=== PATIENT | female | born 1985 | race Caucasian/White ===

== ENCOUNTER 2016-12-12 14:40 | Emergency (ER) | payer OTHER ==
[2016-12-12 14:50] VITALS: BMI 24.3
[2016-12-12] MEDS ORDERED: NS 1000 ML 1,000 ML IV ONE (14:59)
--- NOTE | 2016-12-12 15:00 | DR.GENAD ---
HPI - PCP Primary Care Physician: MATT - Complaint/Symptoms Chief Complaint Doctors Comments: Patient states that she saw her primary care physicain Dr Ya on yesterday for left side lymph node swelling. An u/s and labs sent to reference facility results will be available next week. She admits to having a low grade temp for one month. She has been taking chemo pills for severe joint pain and rheumatoid arthritis. She has fatique and has been tested for RA and fibromyalgia on yesterday. Yesterday she was started on prednisone 5mg daily the help with the joint pain, zanaflrx and gabapentin 300mg increased to two in the AM and three HS for joint pain. She is taking ativan 1mg; two daily for anxiety. Patient states that she does not feel good and has had fatique for one month. She had cancer in 2013 and is followed by her oncologist in [place]. She has been antibiotics by Dr Jacinto for "flu" and strep. Chief Complaint:: PT C/O SIMONA, HEART RACING, FEVER, SWOLLEN LYMPH NODES UNDER ARMS. - Source History Provided: Patient - Mode of Arrival Mode of Arrival: Ambulatory - Timing Onset of Chief Complaint: 12/12/16 PMH - PMH Past Medical History: Yes Past Medical History Comment: BREAST CA Past Surgical History: Yes Surgical History: Appendectomy, , RISK ANALYST Surgery, Hysterectomy, Mastectomy - Family History History of Family Medical Conditions: No - Social History Does any household member use tobacco: No Alcohol Use: None Do you use any recreational Drugs:: No Lives With: Family Lives Where: Home - infectious screening In the last 2 months have you had wt loss of >10#?: NO Have you had fever, night sweats or hemotysis?: No Have you traveled outside the country in the last 6 months?: No Isolation: Standard ROS - Review of Systems Constitutional: No Symptoms Reported Eyes: No Symptoms Reported ENTM: No Symptoms Reported Respiratoy: No Symptoms Reported Cardiovascular: No Symptoms Reported Gastrointestinal/Abdominal: No Symptoms Reported Genitourinary: No Symptoms Reported Neurological: No Symptoms Reported Musculoskeletal: Neck Integumentary: No Symptoms Reported Hematologic/Lymphatic: No Symptoms Reported Endocrine: No Symptoms Reported Psychiatric: No Symptoms Reported All Other Systems: Reviewed and Negative PE - Vital Signs Vitals: Temperature 99.1 F Pulse Rate [Left Brachial] 111 Pulse Rate 153 Respiratory Rate 22 Blood Pressure [Left Arm] 125/67 Blood Pressure 120/106 O2 Sat by Pulse Oximetry 94 - General Limitations: No Limitations General Appearance: Alert, In No Apparent Distress, Anxious - Head Head Exam: Normal Inspection, Atraumatic - Eyes Eye exam: Normal Appearance, PERRL, EOMI - ENT ENT Exam: Normal Exam External Ear Exam: Normal External Inspection TM/Canal Exam: Bilateral Normal Nose Exam: Other (congested) Mouth Exam: Normal Inspection Throat Exam: Normal Inspection - Neck Neck Exam: Normal Inspection - Chest Chest Inspection: Normal Inspection - Respiratory Respiratory Exam: Normal Lung Sounds Bilat Respiratory Exam: Bilateral Clear to Auscultation - Cardiovascular Cardiovascular Exam: Regular Rate, Normal Rhythm - Abdominal Exam Abdominal Exam: Normal Inspection, Tenderness Abdominal Tenderness: Epigastrium - Extremities Extremities Exam: Normal Inspection - Back Back Exam: Normal Inspection, Full ROM - Neurologic Neurological Exam: Alert, Oriented X3, CN II-XII Intact - Psychiatric Psychiatric Exam: Normal Affect, Agitated, Anxious Course - Reevaluation 1st: Improved ROR - Labs Reviewed Result Diagrams: 12/12/16 15:15 12/12/16 15:15 Laboratory: WBC 6.6 X10^3/uL (3.6-10.0) 12/12/16 15:15 RBC 4.82 X10^6/uL (3.5-5.4) 12/12/16 15:15 Hgb 13.7 g/dL (12.0-16.0) 12/12/16 15:15 Hct 40.4 % (36.0-47.0) 12/12/16 15:15 MCV 83.7 fL (80.0-100.0) 12/12/16 15:15 MCH 28.4 pg (27.0-34.0) 12/12/16 15:15 MCHC 33.9 g/dL (33.0-35.0) 12/12/16 15:15 RDW 12.6 % (11.6-16.5) 12/12/16 15:15 Plt Count 196 X10^3/uL (150.0-450.0) 12/12/16 15:15 MPV 7.6 fL (7.4-11.0) 12/12/16 15:15 Neut % 81.2 % (42.0-75.0) H 12/12/16 15:15 Lymph % 8.1 % (21.0-51.0) L 12/12/16 15:15 [place] % 9.0 % (0.0-13.0) 12/12/16 15:15 Eos % 0.8 % (0.9-2.9) L 12/12/16 15:15 Baso % 0.9 % (0.2-1.0) 12/12/16 15:15 Neut # 5.4 x10^3/uL (2.2-4.8) H 12/12/16 15:15 Lymph # 0.5 X10^3/uL (1.3-2.9) L 12/12/16 15:15 [place] # 0.6 x10^3/uL (0.3-0.8) 12/12/16 15:15 Eos # 0.1 x10^3/uL (0.0-0.2) 12/12/16 15:15 Baso # 0.1 X10^3/uL (0.0-0.1) 12/12/16 15:15 Absolute Nucleated RBC 0.0 /100WBC 12/12/16 15:15 INR Target Range - 12/12/16 15:15 INR 0.92 (0.8-1.3) 12/12/16 15:15 PTT 28.4 SECONDS (22.9-36.5) 12/12/16 15:15 PTT Comment - 12/12/16 15:15 Sodium 141 mmol/L (136-145) 12/12/16 15:15 Corrected Sodium 141 mmol/L (136-145) 12/12/16 15:15 Potassium 3.6 mmol/L (3.5-5.1) 12/12/16 15:15 Chloride 105 mmol/L (98-107) 12/12/16 15:15 Carbon Dioxide 24.8 mmol/L (21-32) 12/12/16 15:15 BUN 11 mg/dL (7-18) 12/12/16 15:15 Creatinine 0.79 mg/dL (0.55-1.02) 12/12/16 15:15 Est GFR (MDRD) Af Amer > 60 (>60) 12/12/16 15:15 Est GFR (MDRD) Non-Af > 60 (>60) 12/12/16 15:15 Glucose 113 mg/dL (65-99) H 12/12/16 15:15 Calcium 8.6 mg/dL (8.5-10.1) 12/12/16 15:15 Corrected Calcium TNP 12/12/16 15:15 Phosphorus 2.5 mg/dL (2.6-4.7) L 12/12/16 15:15 Magnesium 1.8 mg/dL (1.7-2.9) 12/12/16 15:15 Total Bilirubin 0.20 mg/dL (0.2-1.0) 12/12/16 15:15 AST 17 Units/L (15-37) 12/12/16 15:15 ALT 24 Units/L (12-78) 12/12/16 15:15 Alkaline Phosphatase 107 Units/L (46-116) 12/12/16 15:15 Creatine Kinase 43 Units/L (26-192) 12/12/16 15:15 CK-MB (CK-2) < 1.0 ng/mL (0-4.0) 12/12/16 15:15 CK/CKMB % Calc 2.3 % (<4) 12/12/16 15:15 Troponin I < 0.02 ng/mL (0-1.5) 12/12/16 15:15 Total Protein 7.4 g/dL (6.4-8.2) 12/12/16 15:15 Albumin 3.8 g/dL (3.4-5.0) 12/12/16 15:15 Globulin 3.6 g/dL (2.5-4.5) 12/12/16 15:15 Albumin/Globulin Ratio 1.1 Ratio (1.1-2.1) 12/12/16 15:15 Specimen Type Clean catch urine 12/12/16 18:36 Urine Color Yellow (YELLOW) 12/12/16 18:36 Urine Appearance Hazy (CLEAR) 12/12/16 18:36 Urine pH 6.5 (5.0 - 8.0) 12/12/16 18:36 Ur Specific [place] 1.005 (1.000-1.030) 12/12/16 18:36 Urine Protein Negative (NEGATIVE) 12/12/16 18:36 Urine Glucose (UA) Negative (NEGATIVE) 12/12/16 18:36 Urine Ketones Negative (NEGATIVE) 12/12/16 18:36 Urine Occult Blood 2+ (NEGATIVE) 12/12/16 18:36 Urine Nitrite Negative (NEGATIVE) 12/12/16 18:36 Urine Bilirubin Negative (NEGATIVE) 12/12/16 18:36 Urine Urobilinogen Normal (NORMAL) 12/12/16 18:36 Ur Leukocyte Esterase 1+ (NEGATIVE) 12/12/16 18:36 Urine RBC 0-2 /HPF (NEGATIVE) 12/12/16 18:36 Urine WBC 0-2 /HPF (NEGATIVE) 12/12/16 18:36 Ur Squamous Epith Cells Few /HPF (NEGATIVE) 12/12/16 18:36 Urine Bacteria 2+ /HPF (NEGATIVE) 12/12/16 18:36 Ur Culture Indicated? No/not indicated 12/12/16 18:36 H. pylori IgG Antibody Positive (NEGATIVE) A 12/12/16 15:15 Monoscreen Negative (NEGATIVE) 12/12/16 15:15 Influenza A (H1N1) PCR Not detected (NOT DETECT) 12/12/16 17:40 Influenza Type A (PCR) Positive (NEGATIVE) A 12/12/16 17:40 Influenza Type B (PCR) Negative (NEGATIVE) 12/12/16 17:40 Streptococcus Screen Negative (NEGATIVE) 12/12/16 17:40 - XRAY XRAY Interpreted by: Radiologist (CT C-Spine:Mild disc space narrowing throughout mild scoliotic curvature of the spine otherwise, unremarkable. Chronic sinusitis) - Diagnosis Discharge Problem: Narrowing of intervertebral disc space - Discharge Plan Condition: Stable - Follow ups/Referrals Follow ups/Referrals: Isabel Jacinto [Primary Care Provider] - 3 days - Instructions
[2016-12-12] MEDS ORDERED: NS 1000 ML 1,000 ML ONE (15:12)
[2016-12-12 15:29] LABS: BASOPHILS # (AUTO) 0.1 X10^3/uL (0.0-0.1); BASOPHILS % (AUTO) 0.9 % (0.2-1.0); EOSINOPHILS # (AUTO) 0.1 x10^3/uL (0.0-0.2); EOSINOPHILS % (AUTO) 0.8 % (0.9-2.9); HEMATOCRIT 40.4 % (36.0-47.0); HEMOGLOBIN 13.7 g/dL (12.0-16.0); LYMPHOCYTES # (AUTO) 0.5 X10^3/uL (1.3-2.9); LYMPHOCYTES % (AUTO) 8.1 % (21.0-51.0); MEAN CORPUSCULAR HEMOGLOBIN 28.4 pg (27.0-34.0); MEAN CORPUSCULAR HGB CONC 33.9 g/dL (33.0-35.0); MEAN CORPUSCULAR VOLUME 83.7 fL (80.0-100.0); MEAN PLATELET VOLUME 7.6 fL (7.4-11.0); MONOCYTES # (AUTO) 0.6 x10^3/uL (0.3-0.8); NEUTROPHILS # (AUTO) 5.4 x10^3/uL (2.2-4.8); NEUTROPHILS % (AUTO) 81.2 % (42.0-75.0); PLATELET COUNT 196 X10^3/uL (150.0-450.0); RED BLOOD COUNT 4.82 X10^6/uL (3.5-5.4); RED CELL DISTRIBUTION WIDTH 12.6 % (11.6-16.5); WHITE BLOOD COUNT 6.6 X10^3/uL (3.6-10.0)
[2016-12-12 15:50] LABS: BLOOD UREA NITROGEN 11 mg/dL (7-18); CALCIUM 8.6 mg/dL (8.5-10.1); CARBON DIOXIDE 24.8 mmol/L (21-32); CHLORIDE 105 mmol/L (98-107); COR NA(FOR HYPERGLY) 141 mmol/L (136-145); CREATININE 0.79 mg/dL (0.55-1.02); GLUCOSE 113 mg/dL (65-99); SODIUM 141 mmol/L (136-145); TROPONIN I < 0.02 ng/mL (0-1.5); eGFR BLACK RACES > 60 (>60); eGFR NON BLACK RACES > 60 (>60)
[2016-12-12 15:52] LABS: ALANINE AMINOTRANSFERASE 24 Units/L (12-78); ALBUMIN 3.8 g/dL (3.4-5.0); ALKALINE PHOSPHATASE 107 Units/L (46-116); ASPARTATE AMINO TRANSFERASE 17 Units/L (15-37); CREATINE KINASE 43 Units/L (26-192); CREATINE KINASE MB < 1.0 ng/mL (0-4.0); MAGNESIUM 1.8 mg/dL (1.7-2.9); PHOSPHORUS 2.5 mg/dL (2.6-4.7); TOTAL PROTEIN 7.4 g/dL (6.4-8.2)
[2016-12-12 15:56] LABS: CKMB % 2.3 % (<4)
[2016-12-12 16:20] LABS: MONOTEST NEGATIVE (NEGATIVE)
[2016-12-12] MEDS ORDERED: ATIVAN INJ 2 MG VIAL IVP ONE (16:24)
[2016-12-12] MEDS ORDERED: ATIVAN INJ 2 MG VIAL ONE (16:29)
[2016-12-12] MEDS ORDERED: ZOFRAN INJ 4 MG VIAL ONE (16:30)
[2016-12-12] MEDS ORDERED: ZOFRAN INJ 4 MG VIAL IVP ONE (16:30)
[2016-12-12] MEDS ORDERED: TORADOL 30 MG VIAL IVP ONE (17:06)
[2016-12-12] MEDS ORDERED: TORADOL 30 MG VIAL ONE (17:06)
[2016-12-12 18:34] VITALS: BP 125/67
[2016-12-12 18:47] LABS: BILIRUBIN,URINE NEGATIVE (NEGATIVE); BLOOD/HEMOGLOBIN,URINE 2+ (NEGATIVE); GLUCOSE, URINE NEGATIVE (NEGATIVE); KETONES,URINE NEGATIVE (NEGATIVE); LEUKOCYTE ESTERASE ,URINE 1+ (NEGATIVE); NITRITES,URINE NEGATIVE (NEGATIVE); PH,URINE 6.5 (5.0 - 8.0); PROTEIN,URINE NEGATIVE (NEGATIVE); UROBILINOGEN,URINE NORMAL (NORMAL)
[2016-12-12 19:07] LABS: APPEARANCE,URINE HAZY (CLEAR); BACTERIA,URINE 2+ /HPF (NEGATIVE); COLOR,URINE YELLOW (YELLOW); RBC,URINE 0-2 /HPF (NEGATIVE); SQUAMOUS EPITHELIAL CELL,UR FEW /HPF (NEGATIVE)
--- NOTE | 2016-12-12 19:08 | CT ---
HISTORY: Neck pain Study: CT cervical spine without contrast Comparison: None Technique: Multiple axial images of the cervical spine were obtained from the skull base to the thor acic inlet without administration of IV contrast. Sagittal and coronal reformats were performed and reviewed. Findings: Alignment of the cervical spine is maintained. No evidence for acute cortical disruption or subluxa tion can be seen. The central canal remains free of compromise from bony fragments or significant s oft tissue encroachment. The posterior elements appear unremarkable. The prevertebral soft tissues are normal in their appearance. In addition, the surrounding paraspinous soft tissues are unremark able. There is mild disc space narrowing throughout with mild curvature. There is moderate mucosal t hickening in the visualized paranasal sinuses. IMPRESSION: Mild disc space narrowing throughout mild scoliotic curvature of the spine otherwise, unremarkable. Chronic sinusitis. Reported By:
== END 2016-12-12 20:00 | disposition home or self-care (01) ==
LOC: ER 14:54
DX: M51.36 Other intervertebral disc degeneration, lumbar region (principal); J32.9 Chronic sinusitis, unspecified
CPT/HCPCS: 36415; 72125; 80053; 81001; 82550; 82553; 83735; 84100; 84484; 85025; 85610; 85730; 86308; 86677; 87070; 87502; 87503; 87880; 93005; 93010; 96365; 96374; 96375; 99283; A4222; J1885; J2060; J2405